=== PATIENT | male | born 1990 | race American Indian/Alaskan Native ===

== ENCOUNTER 2016-10-30 22:28 | Emergency (ER) | payer OTHER ==
[2016-10-30 23:54] VITALS: BP 147/92
[2016-10-31 00:19] LABS: Hematocrit 43.5 % (35.5-45.6); Mean Corpuscular HGB Conc 32 % (32-34); Mean Corpuscular Hemoglobin 27 pg (28-32); Mean Corpuscular Volume 84 fl (84-94); Platelet Count 171 K/mm3 (140-440); Red Blood Count 5.15 M/mm3 (3.65-5.03); Red Cell Distribution Width 14.3 % (13.2-15.2); White Blood Count 12.1 K/mm3 (4.5-11.0)
--- NOTE | 2016-10-31 01:16 | XRay Report ---
FINAL REPORT EXAM: XR ANKLE 2V LT HISTORY: foot pain/swelling TECHNIQUE: Frontal and lateral views of left ankle. PRIORS: None. FINDINGS: Joint spaces maintained. No apparent fracture or dislocation. Soft tissues grossly unremarkable. IMPRESSION: 1. No acute osseous abnormality.
--- NOTE | 2016-10-31 01:16 | XRay Report ---
FINAL REPORT EXAM: XR FOOT 2V LT HISTORY: foot pain/swelling TECHNIQUE: Frontal and lateral views of left foot. PRIORS: None. FINDINGS: Joint spaces maintained. No apparent fracture or dislocation. Soft tissues grossly unremarkable. IMPRESSION: 1. No acute osseous abnormality.
== END 2016-10-31 06:09 | disposition left against medical advice (07) ==
LOC: ED 22:28
DX: M79.673 Pain in unspecified foot (principal); Z53.21 Procedure and treatment not carried out due to patient leaving prior to being seen by health care provider
CPT/HCPCS: 36415; 84550; 85027

== ENCOUNTER 2017-04-04 11:59 | Emergency (ER) | payer OTHER ==
[2017-04-04] MEDS ORDERED: TYLENOL PO ONE (12:20)
[2017-04-04] MEDS ORDERED: TYLENOL ONE (12:22)
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
[2017-04-04] MEDS ORDERED: NACL 0.9% 1000 ML 1,000 ML IV ONE (17:49)
[2017-04-04] MEDS ORDERED: MOTRIN PO ONE (17:49)
[2017-04-04 19:07] VITALS: BP 135/74
== END 2017-04-04 19:18 | disposition home or self-care (01) ==
LOC: ED 11:59
DX: J11.1 Influenza due to unidentified influenza virus with other respiratory manifestations (principal); J02.0 Streptococcal pharyngitis; F17.200 Nicotine dependence, unspecified, uncomplicated
CPT/HCPCS: 87400; 87430; 96360; 99283; J7030

== ENCOUNTER 2017-06-09 06:30 | Emergency (ER) | payer OTHER ==
[2017-06-09 07:05] VITALS: BP 128/78
== END 2017-06-09 10:02 ==
LOC: ED 06:30
DX: R51 Headache (principal); Z53.21 Procedure and treatment not carried out due to patient leaving prior to being seen by health care provider

== ENCOUNTER 2019-04-10 18:54 | Emergency (ER) | payer OTHER ==
[2019-04-10 20:33] VITALS: BP 142/92
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
== END 2019-04-11 02:39 | disposition home or self-care (01) ==
LOC: ED 18:54
DX: S16.1XXA Strain of muscle, fascia and tendon at neck level, initial encounter (principal); S09.90XA Unspecified injury of head, initial encounter; M54.9 Dorsalgia, unspecified; Z79.899 Other long term (current) drug therapy; V73.6XXA Passenger on bus injured in collision with car, pick-up truck or van in traffic accident, initial encounter; Y93.89 Activity, other specified; Y92.410 Unspecified street and highway as the place of occurrence of the external cause; Y99.8 Other external cause status
CPT/HCPCS: 72040

== ENCOUNTER 2020-09-01 22:42 | Emergency (ER) | payer SELFPAY ==
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
[2020-09-01 23:41] VITALS: BP 112/77
== END 2020-09-02 | disposition home or self-care (01) ==
LOC: ED 22:42
DX: K08.89 Other specified disorders of teeth and supporting structures (principal); Z79.899 Other long term (current) drug therapy
CPT/HCPCS: 99281

== ENCOUNTER 2020-09-11 22:06 | Emergency (ER) | payer SELFPAY ==
[2020-09-11 23:17] VITALS: BP 120/82
[2020-09-11] MEDS ORDERED: HYDROcodone/ACETAMINOPHEN 5-325 MG TAB PO ONE (23:55)
--- NOTE | 2020-09-12 00:53 | Emergency Department Report ---
ED Lower Extremity HPI - General Chief Complaint: Extremity Injury, Lower Stated Complaint: LT ANKLE INJURY Source: patient Mode of arrival: Ambulatory Limitations: No Limitations - History of Present Illness Initial Comments: Patient is a 30-year-old -Monegasque male with no past medical history presents to the ED with complaint of acute onset persistent severe left ankle pain and swelling after he tripped and twisted his left ankle and fell onto a hole on the street about 2 days ago. Patient states that he is unable to bear weight on the left ankle because of severe pain. Patient denies head or neck injuries, loss of consciousness, nausea, vomiting, back pain, chest pain, shortness of breath, dizziness or syncope. MD Complaint: ankle injury (left ankle pain) -: Sudden, days(s) (2) Injury: Ankle: Left (Left ankle pain) Type of Injury: inversion Place: street/outdoors Severity: severe Severity scale (0 -10): 8 Improves With: nothing Worsens With: weight bearing, movement, palpation Context: fall (Twisted left ankle and fell onto a hole) Associated Symptoms: snap/pop sensation, swelling, able to partially bear weight. denies: numbness, tingling, unable to bear weight, ambulatory - Related Data Previous Rx's Medication Instructions Recorded Last Taken Type Amoxicillin [Trimox CAP] 500 mg PO BID #20 capsule 09/01/20 Unknown Rx Ibuprofen [Motrin] 800 mg PO Q8HR PRN #30 tablet 09/01/20 Unknown Rx Baclofen 20 mg PO Q12H PRN #20 tablet 09/12/20 Unknown Rx Ibuprofen [Motrin] 800 mg PO Q8HR PRN #30 tablet 09/12/20 Unknown Rx traMADoL [Ultram] 50 mg PO Q6HR PRN #12 tablet 09/12/20 Unknown Rx Allergies Allergy/AdvReac Type Severity Reaction Status Date / Time No Known Allergies Allergy Verified 09/11/20 23:57 ED Review of Systems ROS: Stated complaint: LT ANKLE INJURY Other details as noted in HPI Constitutional: denies: chills, fever Eyes: denies: eye pain, eye discharge, vision change ENT: denies: ear pain, throat pain Respiratory: denies: cough, shortness of breath, wheezing Cardiovascular: denies: chest pain, palpitations Endocrine: no symptoms reported Gastrointestinal: denies: abdominal pain, nausea, diarrhea Genitourinary: denies: urgency, dysuria Musculoskeletal: joint swelling (Left ankle pain and swelling), arthralgia (Left ankle pain and swelling). denies: back pain Skin: denies: rash, lesions Neurological: denies: headache, weakness, paresthesias Psychiatric: denies: anxiety, depression Hematological/Lymphatic: denies: easy bleeding, easy bruising ED Past Medical Hx - Past Medical History Previous Medical History?: No Additional medical history: left leg fxr - Surgical History Past Surgical History?: No - Social History Smoking Status: Unknown if ever smoked Substance Use Type: None - Medications Home Medications: Home Medications Medication Instructions Recorded Confirmed Last Taken Type Amoxicillin [Trimox CAP] 500 mg PO BID #20 capsule 09/01/20 Unknown Rx Ibuprofen [Motrin] 800 mg PO Q8HR PRN #30 tablet 09/01/20 Unknown Rx Baclofen 20 mg PO Q12H PRN #20 tablet 09/12/20 Unknown Rx Ibuprofen [Motrin] 800 mg PO Q8HR PRN #30 tablet 09/12/20 Unknown Rx traMADoL [Ultram] 50 mg PO Q6HR PRN #12 tablet 09/12/20 Unknown Rx ED Physical Exam - General Limitations: No Limitations General appearance: alert, in no apparent distress - Head Head exam: Present: atraumatic, normocephalic, normal inspection - Eye Eye exam: Present: normal appearance, PERRL, EOMI Pupils: Present: normal accommodation - ENT ENT exam: Present: normal exam, normal orophraynx, mucous membranes moist, TM's normal bilaterally, normal external ear exam - Neck Neck exam: Present: normal inspection, full ROM. Absent: tenderness - Respiratory Respiratory exam: Present: normal lung sounds bilaterally. Absent: respiratory distress, wheezes, rales, rhonchi, chest wall tenderness, accessory muscle use - Cardiovascular Cardiovascular Exam: Present: regular rate, normal rhythm, normal heart sounds. Absent: systolic murmur, diastolic murmur, rubs, gallop - GI/Abdominal GI/Abdominal exam: Present: soft, normal bowel sounds. Absent: tenderness, guarding, hyperactive bowel sounds, hypoactive bowel sounds - Extremities Exam Extremities exam: Present: normal inspection, tenderness (Palpable tenderness of the left ankle and limited range of motion due to pain), normal capillary refill, joint swelling (Left ankle swelling). Absent: full ROM (Limited range of motion of left ankle due to pain), calf tenderness - Back Exam Back exam: Present: normal inspection, full ROM. Absent: tenderness, CVA tenderness (R), muscle spasm, paraspinal tenderness, vertebral tenderness - Neurological Exam Neurological exam: Present: alert, oriented X3, CN II-XII intact, normal gait, reflexes normal - Psychiatric Psychiatric exam: Present: normal affect, normal mood - Skin Skin exam: Present: warm, dry, intact, normal color. Absent: rash ED Course Vital Signs 09/11/20 09/12/20 22:17 00:18 Temperature 98.9 F Pulse Rate 93 H Respiratory 16 18 Rate Blood Pressure 120/82 O2 Sat by Pulse 99 Oximetry ED Lower Extremity MDM - Radiology Data Radiology results: report reviewed, image reviewed [address] [address] XRay Report Signed Patient: GRETCHEN CHRISTENSEN II MR#: [id number] : 1990 Acct:[id number] Age/Sex: 30 / M ADM Date: 09/11/20 Loc: ED Attending Dr: Ordering Physician: LALI MARIO Date of Service: 09/11/20 Procedure(s): XR ankle 2V LT Accession Number(s): [id number] cc: LALI MARIO Fluoro Time In Minutes: Left ankle 2 views INDICATION: Injury FINDINGS: Alignment appears normal. Diffuse swelling within the ankle. No acute fracture. Signer Name: Shon Temple MD Signed: 09/12/2020 1:57 AM Workstation Name: [id number] Transcribed By: CW Dictated By: NIEVES TEMPLE MD Electronically Authenticated By: NIEVES TEMPLE MD Signed Date/Time: 09/12/20156 DD/ 5 TD/TT: - Medical Decision Making This is a 30-year-old -Monegasque male with no past medical history presents to the ED with complaint of acute onset persistent severe left ankle pain and swelling after he tripped and twisted his left ankle and fell onto a hole on the street about 2 days ago. Patient states that he is unable to bear weight on the left ankle because of severe pain. In the ED, patient is alert and oriented x3 and is not in any distress but appears to be in pain. Patient was treated for pain in the ED. Left ankle x-ray showed no acute fractures or subluxations. On reevaluation, patient's pain is well controlled medication. Patient will discharge home on pain medications after application of Dale wrap on left ankle and also given crutches to aid in ambulation. Patient is advised to follow-up with his primary care physician in 5 to 7 days for reevaluation or return to the ED immediately if symptoms get worse. - Differential Diagnosis ankle fracture; ankle sprain; ankle muscle strain; ankle contusion Critical care attestation.: If time is entered above; I have spent that time in minutes in the direct care of this critically ill patient, excluding procedure time. ED Disposition Clinical Impression: Contusion of left ankle, initial encounter Severe sprain of left ankle Qualifiers: Encounter type: initial encounter Qualified Code(s): S93.402A - Sprain of unspecified ligament of left ankle, initial encounter Disposition: TO HOME OR SELFCARE Is pt being admited?: No Does the pt Need Aspirin: No Condition: Stable Instructions: Ankle Sprain, Nhvk-ub-Elwm, Contusion, Fbqv-gx-Dujy Additional Instructions: The left ankle x-ray showed no acute fractures or subluxations. Your injuries are musculoskeletal causing a sprain of the left ankle joint. Therefore take medications with food, drink plenty of fluids and follow-up with your primary care physician in 5 to 7 days for reevaluation. Return to the ED immediately if symptoms get worse. Prescriptions: Baclofen 20 mg PO Q12H PRN #20 tablet PRN Reason: Muscle Spasm Ibuprofen [Motrin] 800 mg PO Q8HR PRN #30 tablet PRN Reason: Pain , Severe (7-10) traMADoL [Ultram] 50 mg PO Q6HR PRN #12 tablet PRN Reason: Pain Referrals: [facility] [Provider Group] - 3-5 Days Forms: Work/School Release Form(ED) Time of Disposition: 00:54 Print Language: SWISS
--- NOTE | 2020-09-12 02:01 | XRay Report ---
Left ankle 2 views INDICATION: Injury FINDINGS: Alignment appears normal. Diffuse swelling within the ankle. No acute fracture. Signer Name: Shon Jung MD Signed: 09/12/2020 1:57 AM Workstation Name: [id number]
== END 2020-09-12 02:00 | disposition home or self-care (01) ==
LOC: ED 22:06
DX: S93.402A Sprain of unspecified ligament of left ankle, initial encounter (principal); S90.02XA Contusion of left ankle, initial encounter; Z79.899 Other long term (current) drug therapy; X58.XXXA Exposure to other specified factors, initial encounter; Y93.89 Activity, other specified; Y92.410 Unspecified street and highway as the place of occurrence of the external cause; Y99.8 Other external cause status

== ENCOUNTER 2020-09-27 16:18 | Emergency (ER) | payer OTHER ==
[2020-09-27 18:27] VITALS: BP 144/82
--- NOTE | 2020-09-27 20:07 | Emergency Department Report ---
ED ENT HPI - General Chief complaint: Earache Stated complaint: SOMETHING IN RT EAR Time Seen by Provider: 09/27/20 19:55 Source: patient Mode of arrival: Ambulatory Limitations: No Limitations - History of Present Illness Initial comments: Patient is a 30-year-old male who presents emergency room with complaints of right ear discomfort that began a month ago. He states initially he was using Q-tips to clean the ear and then his ear began to feel discomfort after. He states he has noticed some drainage from the ear. He denies any fever, nausea, vomiting, diarrhea, chills, difficulty hearing. No past medical history. No allergies medications. - Related Data Previous Rx's Medication Instructions Recorded Last Taken Type Amoxicillin [Trimox CAP] 500 mg PO BID #20 capsule 09/01/20 Unknown Rx Ibuprofen [Motrin] 800 mg PO Q8HR PRN #30 tablet 09/01/20 Unknown Rx Baclofen 20 mg PO Q12H PRN #20 tablet 09/12/20 Unknown Rx Ibuprofen [Motrin] 800 mg PO Q8HR PRN #30 tablet 09/12/20 Unknown Rx traMADoL [Ultram] 50 mg PO Q6HR PRN #12 tablet 09/12/20 Unknown Rx Neomycin/Polymyxin B/Hydrocort 4 drops AD QID 7 Days #1 solution 09/27/20 Unknown Rx [Avkvscix-Cfqvxvopl-Hy Ear Soln] Allergies Allergy/AdvReac Type Severity Reaction Status Date / Time No Known Allergies Allergy Verified 09/11/20 23:57 ED Dental HPI - General Chief complaint: Earache Stated complaint: SOMETHING IN RT EAR Time Seen by Provider: 09/27/20 19:55 Source: patient Mode of arrival: Ambulatory Limitations: No Limitations - Related Data Previous Rx's Medication Instructions Recorded Last Taken Type Amoxicillin [Trimox CAP] 500 mg PO BID #20 capsule 09/01/20 Unknown Rx Ibuprofen [Motrin] 800 mg PO Q8HR PRN #30 tablet 09/01/20 Unknown Rx Baclofen 20 mg PO Q12H PRN #20 tablet 09/12/20 Unknown Rx Ibuprofen [Motrin] 800 mg PO Q8HR PRN #30 tablet 09/12/20 Unknown Rx traMADoL [Ultram] 50 mg PO Q6HR PRN #12 tablet 09/12/20 Unknown Rx Neomycin/Polymyxin B/Hydrocort 4 drops AD QID 7 Days #1 solution 09/27/20 Unknown Rx [Zrvieenk-Hmgtcxhbw-Fj Ear Soln] Allergies Allergy/AdvReac Type Severity Reaction Status Date / Time No Known Allergies Allergy Verified 09/11/20 23:57 ED Review of Systems ROS: Stated complaint: SOMETHING IN RT EAR Other details as noted in HPI Comment: All other systems reviewed and negative ED Past Medical Hx - Past Medical History Previous Medical History?: No Additional medical history: left leg fxr - Surgical History Past Surgical History?: No - Social History Smoking Status: Unknown if ever smoked Substance Use Type: None - Medications Home Medications: Home Medications Medication Instructions Recorded Confirmed Last Taken Type Amoxicillin [Trimox CAP] 500 mg PO BID #20 capsule 09/01/20 Unknown Rx Ibuprofen [Motrin] 800 mg PO Q8HR PRN #30 tablet 09/01/20 Unknown Rx Baclofen 20 mg PO Q12H PRN #20 tablet 09/12/20 Unknown Rx Ibuprofen [Motrin] 800 mg PO Q8HR PRN #30 tablet 09/12/20 Unknown Rx traMADoL [Ultram] 50 mg PO Q6HR PRN #12 tablet 09/12/20 Unknown Rx Neomycin/Polymyxin B/Hydrocort 4 drops AD QID 7 Days #1 solution 09/27/20 Unknown Rx [Gzezrxni-Rjtnekjrs-Mz Ear Soln] ED Physical Exam - General Limitations: No Limitations General appearance: alert, in no apparent distress - Head Head exam: Present: atraumatic, normocephalic - ENT ENT exam: Present: mucous membranes moist, other (left TM and canal are normal, right canal is erythematous with scaling and small amount of purulent drainage, no obvious foreign body, right TM appears WNL and intact) - Respiratory Respiratory exam: Absent: respiratory distress, accessory muscle use - Neurological Exam Neurological exam: Present: alert, oriented X3 - Psychiatric Psychiatric exam: Present: normal affect, normal mood - Skin Skin exam: Present: warm, dry ED Course Vital Signs 09/27/20 18:25 Temperature 97.9 F Pulse Rate 80 Respiratory 18 Rate Blood Pressure 144/82 O2 Sat by Pulse 99 Oximetry ED Medical Decision Making - Medical Decision Making Patient is a 30-year-old male who presents emergency room with complaints of right ear discomfort that began a month ago. He states initially he was using Q-tips to clean the ear and then his ear began to feel discomfort after. He states he has noticed some drainage from the ear. He denies any fever, nausea, vomiting, diarrhea, chills, difficulty hearing. No past medical history. No allergies medications. vss. on exam: left TM and canal are normal, right canal is erythematous with scaling and small amount of purulent drainage, no obvious foreign body, right TM appears WNL and intact. Examination appears insistent with otitis externa. Patient given prescription for antibiotic eardrops. Advised patient Please use medication as prescribed. Please do not place Q-tips in the ears. If you need to clean your ears please use Debrox ear cleaning solution kit. Follow-up with your primary care doctor. Follow-up with a hearing aid technician. Return to emergency room for new or worse symptoms. Critical care attestation.: If time is entered above; I have spent that time in minutes in the direct care of this critically ill patient, excluding procedure time. ED Disposition Clinical Impression: Otitis externa Qualifiers: Otitis externa type: unspecified type Chronicity: acute Laterality: right Qualified Code(s): H60.501 - Unspecified acute noninfective otitis externa, right ear Disposition: TO HOME OR SELFCARE Is pt being admited?: No Does the pt Need Aspirin: No Condition: Stable Instructions: Otitis Externa, Atmz-aw-Sdqx Additional Instructions: Please use medication as prescribed. Please do not place Q-tips in the ears. If you need to clean your ears please use Debrox ear cleaning solution kit. Follow-up with your primary care doctor. Follow-up with a hearing aid technician. Return to emergency room for new or worse symptoms. Prescriptions: Neomycin/Polymyxin B/Hydrocort [Umeyptnz-Pmhgastfl-Od Ear Soln] 4 drops AD QID 7 Days #1 solution Referrals: RYLAND PIERRE MD [Staff Physician] - 3-5 Days [facility] [Provider Group] - 3-5 Days [facility] [Provider Group] - 3-5 Days Time of Disposition: 20:06 Print Language: MALTESE
== END 2020-09-27 20:30 | disposition home or self-care (01) ==
LOC: ED 16:18
DX: H60.91 Unspecified otitis externa, right ear (principal); Z98.890 Other specified postprocedural states; Z79.899 Other long term (current) drug therapy
CPT/HCPCS: 99281

== ENCOUNTER 2020-10-14 16:06 | Emergency (ER) | payer OTHER ==
[2020-10-14 16:10] VITALS: BP 123/79
[2020-10-14 17:18] LABS: Basophils % (Auto) 0.3 % (0.0-1.8); Eosinophils # (Auto) 0.2 K/mm3 (0.0-0.4); Eosinophils % (Auto) 2.2 % (0.0-4.3); Hematocrit 40.2 % (35.5-45.6); Hemoglobin 13.1 gm/dl (11.8-15.2); Lymphocytes # (Auto) 2.5 K/mm3 (1.2-5.4); Lymphocytes % (Auto) 33.1 % (13.4-35.0); Mean Corpuscular HGB Conc 33 % (32-34); Mean Corpuscular Volume 85 fl (84-94); Monocytes # (Auto) 0.4 K/mm3 (0.0-0.8); Platelet Count 168 K/mm3 (140-440); Red Blood Count 4.76 M/mm3 (3.65-5.03); Red Cell Distribution Width 13.9 % (13.2-15.2)
[2020-10-14 17:28] LABS: INR 0.99 (0.87-1.13)
[2020-10-14 17:29] LABS: Partial Thromboplastin Time 27.4 Sec. (24.2-36.6)
[2020-10-14 17:31] LABS: Alanine Aminotransferase 20 units/L (7-56); Albumin 4.5 g/dL (3.9-5); BUN/Creatinine Ratio 11; Blood Urea Nitrogen 10 mg/dL (9-20); Calcium 9.6 mg/dL (8.4-10.2); Hemolysis Index 6
--- NOTE | 2020-10-14 18:09 | Emergency Department Report ---
ED ENT HPI - General Chief complaint: Nosebleed Stated complaint: NOSE BLEED Time Seen by Provider: 10/14/20 16:34 Source: patient Mode of arrival: Ambulatory Limitations: No Limitations - History of Present Illness Initial comments: This is a 30-year-old male nontoxic, well nourished in appearance, no acute signs of distress presents to the ED with c/o of epistaxis that occurred prior to arrival. Patient stated he was washing a car and suddenly started to have nosebleeds. Patient stated that since he is in ER has been putting pressure nosebleeds has been spot stop. Patient otherwise denies any other complaints or symptoms. Patient denies any head injuries or trauma. Patient denies any fever, chills, headache, stiff neck, nausea, vomiting, chest pain, shortness of breath, numbness or tingling. Patient denies any drooling or hoarseness. P atient denies any allergies or significant past medical history. MD complaint: epistaxis -: This afternoon Severity scale (0 -10): 0 Consistency: now resolved Improves with: none Worsens with: none Associated Symptoms: denies: fever, cough, gum swelling, toothache, pain with swallowing, sore throat, tinnitus, hearing loss, discharge from ear, rhinorrhea - Related Data Previous Rx's Medication Instructions Recorded Last Taken Type Amoxicillin [Trimox CAP] 500 mg PO BID #20 capsule 09/01/20 Unknown Rx Ibuprofen [Motrin] 800 mg PO Q8HR PRN #30 tablet 09/01/20 Unknown Rx Baclofen 20 mg PO Q12H PRN #20 tablet 09/12/20 Unknown Rx Ibuprofen [Motrin] 800 mg PO Q8HR PRN #30 tablet 09/12/20 Unknown Rx traMADoL [Ultram] 50 mg PO Q6HR PRN #12 tablet 09/12/20 Unknown Rx Neomycin/Polymyxin B/Hydrocort 4 drops AD QID 7 Days #1 solution 09/27/20 Unknown Rx [Kbqxmooe-Ibxyodohb-Zz Ear Soln] Allergies Allergy/AdvReac Type Severity Reaction Status Date / Time No Known Allergies Allergy Verified 10/14/20 16:07 ED Dental HPI - General Chief complaint: Nosebleed Stated complaint: NOSE BLEED Time Seen by Provider: 10/14/20 16:34 Source: patient Mode of arrival: Ambulatory Limitations: No Limitations - Related Data Previous Rx's Medication Instructions Recorded Last Taken Type Amoxicillin [Trimox CAP] 500 mg PO BID #20 capsule 09/01/20 Unknown Rx Ibuprofen [Motrin] 800 mg PO Q8HR PRN #30 tablet 09/01/20 Unknown Rx Baclofen 20 mg PO Q12H PRN #20 tablet 09/12/20 Unknown Rx Ibuprofen [Motrin] 800 mg PO Q8HR PRN #30 tablet 09/12/20 Unknown Rx traMADoL [Ultram] 50 mg PO Q6HR PRN #12 tablet 09/12/20 Unknown Rx Neomycin/Polymyxin B/Hydrocort 4 drops AD QID 7 Days #1 solution 09/27/20 Unknown Rx [Jswsrvkk-Lsikmelsf-Qc Ear Soln] Allergies Allergy/AdvReac Type Severity Reaction Status Date / Time No Known Allergies Allergy Verified 10/14/20 16:07 ED Review of Systems ROS: Stated complaint: NOSE BLEED Other details as noted in HPI Constitutional: denies: chills, fever Eyes: denies: eye pain, eye discharge, vision change ENT: epistaxis. denies: ear pain, throat pain, dental pain, hearing loss, congestion Respiratory: denies: cough, shortness of breath, wheezing Cardiovascular: denies: chest pain, palpitations Endocrine: no symptoms reported Gastrointestinal: denies: abdominal pain, nausea, diarrhea Genitourinary: denies: urgency, dysuria Musculoskeletal: denies: back pain, joint swelling, arthralgia Skin: denies: rash, lesions Neurological: denies: headache, weakness, paresthesias Psychiatric: denies: anxiety, depression Hematological/Lymphatic: denies: easy bleeding, easy bruising ED Past Medical Hx - Past Medical History Previous Medical History?: Yes Additional medical history: left leg fxr - Social History Smoking Status: Unknown if ever smoked Substance Use Type: None - Medications Home Medications: Home Medications Medication Instructions Recorded Confirmed Last Taken Type Amoxicillin [Trimox CAP] 500 mg PO BID #20 capsule 09/01/20 Unknown Rx Ibuprofen [Motrin] 800 mg PO Q8HR PRN #30 tablet 09/01/20 Unknown Rx Baclofen 20 mg PO Q12H PRN #20 tablet 09/12/20 Unknown Rx Ibuprofen [Motrin] 800 mg PO Q8HR PRN #30 tablet 09/12/20 Unknown Rx traMADoL [Ultram] 50 mg PO Q6HR PRN #12 tablet 09/12/20 Unknown Rx Neomycin/Polymyxin B/Hydrocort 4 drops AD QID 7 Days #1 solution 09/27/20 Unknown Rx [Eeonxzqj-Piokygsjw-Uw Ear Soln] ED Physical Exam - General Limitations: No Limitations General appearance: alert, in no apparent distress - Head Head exam: Present: atraumatic, normocephalic - Eye Eye exam: Present: normal appearance - ENT ENT exam: Present: normal exam, normal orophraynx, other (No nasal hematoma or swelling. Epistaxis currently resolved.) - Expanded ENT Exam Expanded Ear exam: Present: normal external inspection Mouth exam: Present: normal external inspection. Absent: drooling, trismus Teeth exam: Present: normal inspection Throat exam: Positive: normal inspection - Neck Neck exam: Present: normal inspection, full ROM - Respiratory Respiratory exam: Absent: respiratory distress - Cardiovascular Cardiovascular Exam: Present: regular rate - Extremities Exam Extremities exam: Present: full ROM - Back Exam Back exam: Present: full ROM - Neurological Exam Neurological exam: Present: alert, oriented X3, normal gait - Expanded Neurological Exam Expanded Patient oriented to: Present: person, place, time Cranial nerves: EOM's Intact: Normal, Facial Sensation: Normal Cerebellar function: Finger to Nose: Normal Upper motor neuron: Pronator Drift: Normal, Sensory Extinction: Normal Motor strength exam: RUE: 5, LUE: 5, RLE: 5, LLE: 5 Best Eye Response ([place]): (4) open spontaneously Best Motor Response (Queenie): (6) obeys commands Best Verbal Response ([place]): (5) oriented Queenie Total: 15 - Psychiatric Psychiatric exam: Present: normal affect, normal mood - Skin Skin exam: Present: warm, dry, intact, normal color. Absent: rash ED Course Vital Signs 10/14/20 16:08 Temperature 98.9 F Pulse Rate 90 Respiratory 20 Rate Blood Pressure 123/79 [Right] O2 Sat by Pulse 97 Oximetry - Reevaluation(s) Reevaluation #1: 10/14/20 18:07 Patient is speaking in full sentences with no signs of distress noted. ED Medical Decision Making - Lab Data Result diagrams: 10/14/20 16:46 10/14/20 16:46 Lab Results 10/14/20 10/14/20 10/14/20 Range/Units 16:46 16:46 16:46 WBC 7.6 (4.5-11.0) K/mm3 RBC 4.76 (3.65-5.03) M/mm3 Hgb 13.1 (11.8-15.2) gm/dl Hct 40.2 (35.5-45.6) % MCV 85 (84-94) fl MCH 28 (28-32) pg MCHC 33 (32-34) % RDW 13.9 (13.2-15.2) % Plt Count 168 (140-440) K/mm3 Lymph % (Auto) 33.1 (13.4-35.0) % Spencer % (Auto) 5.0 (0.0-7.3) % Eos % (Auto) 2.2 (0.0-4.3) % Baso % (Auto) 0.3 (0.0-1.8) % Lymph # (Auto) 2.5 (1.2-5.4) K/mm3 Spencer # (Auto) 0.4 (0.0-0.8) K/mm3 Eos # (Auto) 0.2 (0.0-0.4) K/mm3 Baso # (Auto) 0.0 (0.0-0.1) K/mm3 Seg Neutrophils % 59.4 (40.0-70.0) % Seg Neutrophils # 4.5 (1.8-7.7) K/mm3 PT 13.7 (12.2-14.9) Sec. INR 0.99 (0.87-1.13) APTT 27.4 (24.2-36.6) Sec. Sodium 142 (137-145) mmol/L Potassium 3.8 (3.6-5.0) mmol/L Chloride 106.7 (98-107) mmol/L Carbon Dioxide 24 (22-30) mmol/L Anion Gap 15 mmol/L BUN 10 (9-20) mg/dL Creatinine 0.9 (0.8-1.3) mg/dL Estimated GFR > 60 ml/min BUN/Creatinine Ratio 11 % Glucose 84 (75-100) mg/dL Calcium 9.6 (8.4-10.2) mg/dL Total Bilirubin 0.20 (0.1-1.2) mg/dL AST 21 (5-40) units/L ALT 20 (7-56) units/L Alkaline Phosphatase 81 (35-129) units/L Total Protein 6.8 (6.3-8.2) g/dL Albumin 4.5 (3.9-5) g/dL Albumin/Globulin Ratio 2.0 % - Medical Decision Making 30-year-old male that presents with epistaxis. Patient is stable and was examined by me. Physical exam is unremarkable. Labs has been obtained and patient is notified of the results with no questions noted by the patient. Vital signs are stable. Neuro exam is unremarkable. Patient was instructed to follow-up with a primary care doctor in 3-5 days or if symptoms worsen and continue return to emergency room as soon as possible. At time of discharge, the patient does not seem toxic or ill in appearance. No acute signs of distress noted. Patient agrees to discharge treatment plan of care. No further questions noted by the patient. Critical care attestation.: If time is entered above; I have spent that time in minutes in the direct care of this critically ill patient, excluding procedure time. ED Disposition Clinical Impression: Epistaxis Disposition: DC-01 TO HOME OR SELFCARE Is pt being admited?: No Does the pt Need Aspirin: No Condition: Stable Instructions: Nosebleed, Adult Additional Instructions: Follow-up with a primary care doctor in 3-5 days or if symptoms worsen and continue return to emergency room as soon as possible. Referrals: PRIMARY CAR[facility] [Referring] - 3-5 Days RYLAND PIERRE MD [Staff Physician] - 3-5 Days Time of Disposition: 18:08
== END 2020-10-14 18:39 | disposition home or self-care (01) ==
LOC: ED 16:06
DX: R04.0 Epistaxis (principal); Z79.1 Long term (current) use of non-steroidal anti-inflammatories (NSAID); Z79.2 Long term (current) use of antibiotics; Z79.899 Other long term (current) drug therapy
CPT/HCPCS: 36415; 80053; 85025; 85610; 85730

== ENCOUNTER 2020-12-20 11:52 | Emergency (ER) | payer OTHER ==
[2020-12-20 12:05] VITALS: BP 130/76
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
[2020-12-20] MEDS ORDERED: KETOROLAC 30 MG/1 ML INJ IM ONE (13:18)
[2020-12-20] MEDS ORDERED: dexAMETHasone 20 MG/5 ML VIAL IM ONE (13:18)
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
== END 2020-12-20 14:23 | disposition home or self-care (01) ==
LOC: ED 11:52
DX: M54.31 Sciatica, right side (principal); M54.9 Dorsalgia, unspecified
CPT/HCPCS: 99281; J1100; J1885

== ENCOUNTER 2021-12-17 20:34 | Emergency (ER) | payer SELFPAY ==
[2021-12-17 21:16] VITALS: BP 147/96
== END 2021-12-18 12:00 | disposition left against medical advice (07) ==
LOC: ED 20:34
DX: T14.8XXA Other injury of unspecified body region, initial encounter (principal); Z53.21 Procedure and treatment not carried out due to patient leaving prior to being seen by health care provider; W54.0XXA Bitten by dog, initial encounter; Y93.89 Activity, other specified; Y92.89 Other specified places as the place of occurrence of the external cause; Y99.8 Other external cause status